=== PATIENT | male | born 1955 | race Caucasian/White ===

== ENCOUNTER 2020-03-25 06:56 | Outpatient (CLI) | payer BC, SELFPAY ==
--- NOTE | ~2020-03-25 | MR_ITS ---
EXAMINATION: MR elbow LT wo con DATE: 03/25/2020 07:59 INDICATION: Left elbow pain TECHNIQUE: Magnetic resonance imaging (MRI) of the left elbow was performed without intravenous contr ast. Sequences included coronal, axial, and sagittal PD-weighted FS FSE and coronal, axial, and sagit louisa PD-weighted FSE. COMPARISON: None FINDINGS: Osseous/other: Normal alignment. Normal marrow signal with no marrow edema, fracture, osteochondral lesion or abnor mal marrow replacing process. Tendons: Triceps, biceps brachii and brachialis tendons are normal. Mild thickening and increased signal at t he medial and lateral epicondylar origin of the common flexor tendon wad and common extensor tendon w ad respectively consistent with mild tendinopathy without discrete tear. Ligaments: The medial and lateral collateral ligament complexes are normal. Cubital tunnel: Cubital tunnel is unremarkable with normal signal and caliber of the ulnar nerve. Fluid: Physiologic amount of fluid the elbow joint. IMPRESSION: 1. Mild tendinopathy without discrete tears at the medial and lateral epicondylar origins of the comm on flexor and extensor tendon wads respectively. Reviewed, dictated and finalized at location A. IMPRESSION: 1. Mild tendinopathy without discrete tears at the medial and lateral epicondyl ar origins of the common flexor and extensor tendon wads respectively.
== END 2020-03-25 06:57 | disposition home or self-care (01) ==
PROVIDERS: Visit Provider Nurse Practitioner
DX: M25.522 Pain in left elbow (principal)
CPT/HCPCS: 73221

== ENCOUNTER 2021-05-09 16:16 | Emergency (ER) | payer MEDICARE, SELFPAY ==
[2021-05-09 16:22] VITALS: BP 146/73; PULSE 55; RESP 16; TEMP 37.2; O2SAT 99
--- NOTE | 2021-05-09 16:35 | ED.EYEPROB ---
HPI - Eye Problem General Chief complaint: Eye Problems Stated complaint: fb in left eye Time Seen by Provider: 05/09/21 16:30 Source: patient, family and RN notes reviewed Mode of arrival: ambulatory Limitations: no limitations History of Present Illness HPI Narrative: 65 year old male presents to [facility] care accompanied by with complaints of possible foreign body in his left eye. He states that he was working with his miter saw and was cutting one last piece of wood he needed and forgot to put safety glasses on and a piece of wood flew into his eye. He states that he wiped his eye and he thinks he either still has a piece in his left eye or he has scratched his eye. Patient denies any acute sharp pain to his left eye or any visual changes, bilateral visual acuity without glasses 20/20. MD chief complaint: eye pain and foreign body Onset (ago): hour(s) (4) Onset description: sudden Duration: constant Location: left eye Eye Symptoms: foreign body sensation Place: home Mechanism: other (miter saw) Severity: moderate If Pain, Quality: aching Related Data Home Medications Medication Instructions Recorded Confirmed Acid Reflux Medication 05/09/21 Allergies Allergy/AdvReac Type Severity Reaction Status Date / Time No Known Allergies Allergy Verified 05/09/21 16:38 Review of Systems Review of Systems: Narrative: CONSTITUTIONAL: Denies fever, chills, or sweats. EYES: Denies visual changes, some redness to left eye sclera, no discharge. has foreign body sensation. ENT: Denies rhinorrhea, congestion, sore throat, or otalgia. CARDIOVASCULAR: Denies chest pain, palpitations, or edema. RESPIRATORY: Denies cough or dyspnea. GASTROINTESTINAL: Denies abdominal pain, nausea, vomiting, or diarrhea. GENITOURINARY: Denies dysuria or hematuria. SKIN: Denies rash or itching. MUSCULOSKELETAL: Denies back pain, joint pain, or myalgia. NEUROLOGIC: Denies headache, numbness, or weakness. PSYCHIATRIC: Denies anxiety or depression. All systems reviewed & are unremarkable except as noted in HPI and below PMFSH Past Medical History Medical History (Updated 05/10/21 @ 15:01 by Agnieszka March NP) Arthritis Gastro-esophageal reflux disease without esophagitis Surgical History Surgical History (Updated 05/10/21 @ 15:01 by Agnieszka March NP) H/O knee surgery H/O neck surgery H/O shoulder surgery Family History Family History Sibling Family history of multiple sclerosis Father Acute myocardial infarction Family history of congestive heart failure Social History Social History Smoking status: Former smoker Smoking end date: 11/06/17 Alcohol intake: never Comments At time of signature, agree with nursing past medical, surgical, social and family history. There is no relevant family history pertinent to the presenting complaint Exam Narrative: Exam Narrative: GENERAL: Well-appearing, well-nourished, and in no acute distress. HEAD: Normocephalic, atraumatic. EYES: PERRLA and EOMI. redness to left eye sclera, conjunctiva pink, foreign body sensation to his left eye, no acute sharp pain or changes in vision, see procedural note ENT: Nares clear, no rhinorrhea or epista. Mucous membranes moist. NECK: Supple.no lymphadenopathy CHEST: Clear to auscultation. No respiratory distress. SAO2 99% on room air HEART: Regular rate and rhythm. No murmur heard. Normal peripheral pulses. ABDOMEN: Soft, nontender, nondistended, normal active bowel sounds. EXTREMITIES: Normal range of motion. No edema. SKIN: Warm, dry, no rash. NEURO: No focal deficits. Alert and oriented x3. Course Vital Signs Vital signs: Vital Signs Temperature 37.2 C 05/09/21 16:22 Pulse Rate 55 L 05/09/21 16:22 Respiratory Rate 16 05/09/21 16:22 Blood Pressure 146/73 H 05/09/21 16:22 Pulse Oximetry 99 05/09/21 16:22
== END 2021-05-09 16:56 | disposition home or self-care (01) ==
PROVIDERS: Emergency Provider Registered Nurse; PCP Family Medicine
DX: S05.02XA Injury of conjunctiva and corneal abrasion without foreign body, left eye, initial encounter (principal); X58.XXXA Exposure to other specified factors, initial encounter; Z87.891 Personal history of nicotine dependence; M19.90 Unspecified osteoarthritis, unspecified site; K21.9 Gastro-esophageal reflux disease without esophagitis
CPT/HCPCS: 99213; A9270; G0463